=== PATIENT | female | born 1985 | race Asian ===

== ENCOUNTER 2020-07-20 11:27 | Emergency (ER) | payer OTHER ==
[~2020-07-20] VITALS: Ht 160 cm; Wt 84.6 kg
[~2020-07-20 11:27] MED LIST: CEPH-368 PO; IBUP-1222 PO; ONDA-89 PO; OXYC-302 PO; PREN1TAB27 PO
--- NOTE | 2020-07-20 12:06 | NUR ---
C/O VAGINAL BLEEDING THIS MORNING SMALL AMOUNT OF RED BLOOD, DENIES CRAMPING, + PAIN WITH URINATION. LMP 05/20/2020. PLACED ON VITALS MONITORS, CALL LIGHT WITHIN REACH.
[2020-07-20] MEDS ORDERED: PREN1TAB60 PO (12:11)
[2020-07-20 12:33] LABS: MICROSCOPIC INDICATED
--- NOTE | 2020-07-20 12:35 | NUR ---
PT TRANSPORTED TO US.
[2020-07-20 12:37] LABS: BASOPHILS # (AUTO) 0.01 x10^3/uL (0-0.1); BASOPHILS % (AUTO) 0 % (0-1); EOSINOPHILS # (AUTO) 0.36 x10^3/uL (0-0.4); EOSINOPHILS % (AUTO) 6 % (1-7); LYMPHOCYTES # (AUTO) 1.45 x10^3/uL (1-3.4); LYMPHOCYTES % (AUTO) 23 % (22-44); MD NO; MEAN CORPUSCULAR HEMOGLOBIN 29.9 pg (27.0-34.8); MEAN CORPUSCULAR VOLUME 88.2 fL (80-100); MEAN PLATELET VOLUME 8.8 fL (7.4-10.4); MONOCYTES # (AUTO) 0.36 x10^3/uL (0.2-0.8); MONOCYTES % (AUTO) 6 % (2-9); NEUTROPHILS # (AUTO) 4.09 x10^3/uL (1.8-6.8); NEUTROPHILS % (AUTO) 65 % (42-75); PLATELET COUNT 210 x10^3/uL (130-400); RED BLOOD COUNT 4.28 x10^6/uL (3.82-5.3); RED CELL DISTRIBUTION WIDTH 13.2 % (9.6-15.2)
[2020-07-20 12:55] LABS: ALANINE AMINOTRANSFERASE 16 U/L (12-78); ALBUMIN 3.4 g/dL (3.4-5.0); ALKALINE PHOSPHATASE 48 U/L (45-117); ANION GAP 6 mmol/L (5-15); BILIRUBIN,TOTAL 0.2 mg/dL (0.2-1.0); CALCIUM 8.9 mg/dL (8.5-10.1); CHLORIDE 106 mmol/L (98-107); CREATININE 0.71 mg/dL (0.55-1.02); TOTAL PROTEIN 7.2 g/dL (6.4-8.2)
[2020-07-20 13:04] VITALS: BP 110/68
--- NOTE | 2020-07-20 13:09 | NUR ---
PT RESTING ON [employer], IN NAD. VSS. CALL LIGHT WITHIN REACH.
== END 2020-07-20 13:54 | disposition home or self-care (01) ==
LOC: ED 13:22
DX: O20.0 Threatened abortion (principal); O23.41 Unspecified infection of urinary tract in pregnancy, first trimester; Z3A.08 8 weeks gestation of pregnancy
CPT/HCPCS: 36415; 76830; 80053; 81001; 84702; 85025; 86901; 87086; 87147; 99284

== ENCOUNTER 2021-01-22 04:51 | Inpatient (IN) | payer OTHER ==
[~2021-01-22] VITALS: Ht 160 cm; Wt 99.5 kg
[~2021-01-22 04:51] MED LIST changes: -OXYC-302 PO; +OXYC1TAB14 PO; +PREN1TAB60 PO
[2021-01-22] MEDS ORDERED: LIDOCAINE 1%, 20ML ONE (05:16)
[2021-01-22] MEDS ORDERED: MISOPROSTOL 200 MCG TABLET ONE (05:16)
[2021-01-22] MEDS ORDERED: MISOPROSTOL 25 MCG TABLET ONE (05:16)
[2021-01-22] MEDS ORDERED: OXYTOCIN 30U/ 0.9% NaCL 500ML 500 ML ONE (05:17)
[2021-01-22] MEDS ORDERED: NEWBORN KIT ONE (05:17)
[2021-01-22] MEDS ORDERED: MISOPROSTOL 25 MCG TABLET VG PRN (05:30)
[2021-01-22] MEDS ORDERED: SODIUM CHLORIDE FLUSH 10ML SYR IVF PRN (05:30)
[2021-01-22] MEDS ORDERED: OXYTOCIN 30U/ 0.9% NaCL 500ML 500 ML IV ONE (05:30)
[2021-01-22] MEDS ORDERED: FENTANYL PF 100 MCG/2ML IV PRN (05:30)
[2021-01-22] MEDS ORDERED: PENICILLIN GK 5,000,000 UNITS in DEXTROSE 5% 100 ML IVPB ONE (05:30)
[2021-01-22] MEDS ORDERED: ONDANSETRON 2MG/ML, 2ML IVPush PRN (05:30)
[2021-01-22] MEDS ORDERED: FENTANYL PF 100 MCG/2ML IVPush PRN (05:30)
[2021-01-22] MEDS ORDERED: TERBUTALINE 1 MG/ML, 1ML IVPush PRN (05:30)
[2021-01-22] MEDS ORDERED: TERBUTALINE 1 MG/ML, 1ML SQ PRN (05:30)
[2021-01-22 05:55] LABS: BASOPHILS % (AUTO) 0 % (0-1); EOSINOPHILS % (AUTO) 2 % (1-7); LYMPHOCYTES % (AUTO) 17 % (22-44); MD NO; MEAN CORPUSCULAR HEMOGLOBIN 29.2 pg (27.0-34.8); MEAN CORPUSCULAR HGB CONC 33.9 g/dL (32.4-35.8); MEAN PLATELET VOLUME 8.7 fL (7.4-10.4); MONOCYTES % (AUTO) 6 % (2-9); NEUTROPHILS % (AUTO) 75 % (42-75); PLATELET COUNT 176 x10^3/uL (130-400); RED BLOOD COUNT 4.01 x10^6/uL (3.82-5.3); RED CELL DISTRIBUTION WIDTH 15.1 % (9.6-15.2)
[2021-01-22] MEDS ORDERED: OXYTOCIN 30U/ 0.9% NaCL 500ML 500 ML IV PRN (10:30)
[2021-01-22] MEDS: PENICILLIN GK 2,500,000 UNITS in DEXTROSE 5% 100 ML IVPB SCH ×4 (10:44→23:13)
[2021-01-22] MEDS: LACTATED RINGERS 1,000 ML IV SCH ×2 (14:50→23:00)
[2021-01-22 19:28] VITALS: BP 126/78
[2021-01-23] MEDS ORDERED: FENTANYL PF 100 MCG/2ML ONE (01:03)
[2021-01-23] MEDS ORDERED: FENTANYL/BUPIV./NS/PF 250 ML EPIDCONT ONE (01:03)
[2021-01-23] MEDS ORDERED: BUPIVACAINE 0.25% ONE (01:03)
[2021-01-23] MEDS ORDERED: ONDANSETRON 2MG/ML, 2ML ONE (01:29)
[2021-01-23] MEDS ORDERED: EPINEPHRINE 1 MG/ML, 1ML ONE (01:40)
[2021-01-23] MEDS ORDERED: TERBUTALINE 1 MG/ML, 1ML ONE (01:50)
[2021-01-23] MEDS ORDERED: LACTATED RINGERS 1,000 ML IV SCH (02:00)
[2021-01-23] MEDS ORDERED: EPHEDRINE 50 MG/ML, 1ML IVPush PRN (02:00)
[2021-01-23] MEDS ORDERED: FENTANYL/BUPIV./NS/PF 250 ML EPIDCONT SCH (02:00)
[2021-01-23] MEDS ORDERED: LACTATED RINGERS 1,000 ML IVBOLUS PRN (02:00)
[2021-01-23] MEDS ORDERED: ONDANSETRON 2MG/ML, 2ML IVPush PRN (02:00)
[2021-01-23] MEDS: PENICILLIN GK 2,500,000 UNITS in DEXTROSE 5% 100 ML IVPB SCH ×2 (03:24→07:19)
[2021-01-23] MEDS: LACTATED RINGERS 1,000 ML IV SCH ×3 (07:00→23:00)
[2021-01-23] MEDS: OXYTOCIN 30U/ 0.9% NaCL 500ML 500 ML IV SCH ×2 (10:24→11:26)
[2021-01-23] MEDS ORDERED: OXYcodone/APAP 5/325MG TABLET PO PRN ×2 (11:00)
[2021-01-23] MEDS ORDERED: CARBOPROST TROMETHAMINE 250 MCG/ML, 1ML IM PRN (11:00)
[2021-01-23] MEDS ORDERED: METHYLERGONOVINE 0.2 MG/ML IM PRN (11:00)
[2021-01-23] MEDS ORDERED: SIMETHICONE 80 MG CHEW TAB PO PRN (11:00)
[2021-01-23] MEDS ORDERED: DIPH,PERTUSS(ACELL),TET VAC/PF NC IM-VACC PRN (11:00)
[2021-01-23] MEDS ORDERED: ACETAMINOPHEN 325 MG TABLET PO PRN ×2 (11:00)
[2021-01-23] MEDS ORDERED: OXYTOCIN 30U/ 0.9% NaCL 500ML 500 ML ONE (11:17)
[2021-01-23] MEDS ORDERED: MISOPROSTOL 200 MCG TABLET PR PRN (12:30)
[2021-01-23 12:45] VITALS: BP 96/62
[2021-01-23 16:30] VITALS: BP 112/72
[2021-01-23 18:44] LABS: BASOPHILS % (AUTO) 0 % (0-1); EOSINOPHILS % (AUTO) 1 % (1-7); LYMPHOCYTES % (AUTO) 14 % (22-44); MEAN CORPUSCULAR HEMOGLOBIN 29.5 pg (27.0-34.8); MEAN CORPUSCULAR HGB CONC 34.1 g/dL (32.4-35.8); MEAN PLATELET VOLUME 8.5 fL (7.4-10.4); MONOCYTES % (AUTO) 6 % (2-9); NEUTROPHILS % (AUTO) 79 % (42-75); PLATELET COUNT 175 x10^3/uL (130-400); RED BLOOD COUNT 3.92 x10^6/uL (3.82-5.3); RED CELL DISTRIBUTION WIDTH 15.3 % (9.6-15.2)
[2021-01-23 19:04] LABS: MD NO
[2021-01-23 19:34] VITALS: BP 108/75
[2021-01-23] MEDS: DOCUSATE 100 MG CAPSULE PO PRN (19:46)
[2021-01-24 00:39] VITALS: BP 123/82
[2021-01-24] MEDS: OXYTOCIN 30U/ 0.9% NaCL 500ML 500 ML IV SCH ×2 (03:31→17:00)
[2021-01-24] MEDS: LACTATED RINGERS 1,000 ML IV SCH ×3 (03:31→21:00)
[2021-01-24 04:35] VITALS: BP 114/71
[2021-01-24] MEDS ORDERED: OXYC1TAB14 PO (06:28)
[2021-01-24] MEDS ORDERED: IBUP-1222 PO (06:28)
[2021-01-24 08:00] VITALS: BP 121/81
[2021-01-24] MEDS: IBUPROFEN 600 MG TABLET PO PRN ×3 (08:20→20:49)
[2021-01-24] MEDS: PRENATAL VIT/IRON/FA 1 EACH TABLET PO SCH (09:00)
[2021-01-24 19:51] VITALS: BP 117/81
[2021-01-24] MEDS: DOCUSATE 100 MG CAPSULE PO PRN (20:49)
[2021-01-25] MEDS: OXYTOCIN 30U/ 0.9% NaCL 500ML 500 ML IV SCH (00:36)
[2021-01-25] MEDS: LACTATED RINGERS 1,000 ML IV SCH (07:00)
[2021-01-25 08:15] VITALS: BP 131/87
[2021-01-25] MEDS: PRENATAL VIT/IRON/FA 1 EACH TABLET PO SCH (09:00)
[2021-01-25] MEDS ORDERED: DIPH,PERTUSS(ACELL),TET VAC/PF NC IM-VACC ONE (09:30)
== END 2021-01-25 13:22 | disposition home or self-care (01) | DRG 806 ==
LOC: LDIP 04:51 → 2NW 01-23 12:41
PROVIDERS: ADMIT Obstetrics & Gynecology Maternal & Fetal Medicine; ATTEND Obstetrics & Gynecology Maternal & Fetal Medicine
PROC: 10E0XZZ Delivery of Products of Conception, External Approach (ICD-10-PCS; principal; 2021-01-23)
PROC: 10907ZC Drainage of Amniotic Fluid, Therapeutic from Products of Conception, Via Natural or Artificial Opening (ICD-10-PCS; 2021-01-23)
PROC: 3E033VJ Introduction of Other Hormone into Peripheral Vein, Percutaneous Approach (ICD-10-PCS; 2021-01-23)
PROC: 3E0R3BZ Introduction of Anesthetic Agent into Spinal Canal, Percutaneous Approach (ICD-10-PCS; 2021-01-23)
PROC: 00HU33Z Insertion of Infusion Device into Spinal Canal, Percutaneous Approach (ICD-10-PCS; 2021-01-23)
PROC: 3E0234Z Introduction of Serum, Toxoid and Vaccine into Muscle, Percutaneous Approach (ICD-10-PCS; 2021-01-25)
DX: O32.2XX0 Maternal care for transverse and oblique lie, not applicable or unspecified (principal); O63.9 Long labor, unspecified; Z37.0 Single live birth; O99.824 Streptococcus B carrier state complicating childbirth; Z3A.39 39 weeks gestation of pregnancy; Z23 Encounter for immunization
CPT/HCPCS: 36415; 85025; 86592; 86850; 86900; 90715; G0378; J2540; J2590; J3010; J7120